=== PATIENT | female | born 2000 | race Caucasian/White ===

== ENCOUNTER 2022-12-03 22:24 | Outpatient (REF) | payer OTHER, SELFPAY ==
[2022-12-08 11:12] LABS: Age Gdln ACOG Testing Note (.); IGP, rfx Aptima HPV ASCU Note (.)
== END 2022-12-03 22:25 | disposition home or self-care (01) ==
LOC: LAB 22:24
PROVIDERS: PCP Family Medicine; Visit Provider Physician Assistant
DX: Z12.4 Encounter for screening for malignant neoplasm of cervix (principal)
CPT/HCPCS: G0145